=== PATIENT | female | born 1945 | race Caucasian/White ===

== ENCOUNTER 2016-11-05 07:18 | Inpatient (IN) | payer BC, MEDICARE ==
[~2016-11-05] VITALS: Ht 157.5 cm; Wt 64.9 kg
[2016-11-05] MEDS ORDERED: ATOR10TA69 PO (07:25)
[2016-11-05] MEDS ORDERED: NEBI5TAB3 PO (07:25)
[2016-11-05] MEDS ORDERED: HYDR12.529 PO (07:25)
[2016-11-05 09:32] LABS: BASOPHILS % 0.8 % (0.0-2.0); EOSINOPHILS % 2.4 % (0.0-5.0); HEMATOCRIT. 35.9 % (36.0-48.0); LYMPHOCYTES % 25.2 % (20.0-50.0); MEAN CORPUSCULAR HEMOGLOBIN 30.1 pg (28.0-32.0); MEAN CORPUSCULAR VOLUME 90.1 fL (81.0-99.0); MEAN PLATELET VOLUME 9.8 fl (7.4-10.4); NEUTROPHILS % 63.6 % (40.0-76.0); PLATELET 149 x1000/uL (130-400); RED BLOOD CELL COUNT 3.98 mill/uL (4.2-5.4); RED CELL DISTRIBUTION WIDTH 13.6 % (11.6-14.6)
[2016-11-05 09:38] LABS: PROTHROMBIN TIME 10.7 sec (9.4-11.6)
[2016-11-05 09:45] LABS: CARBON DIOXIDE 30 mEq/L (21-32); CHLORIDE 110 mEq/L (98-107); TROPONIN I < 0.02 ng/mL (0.00-0.04)
[2016-11-05] MEDS ORDERED: ONDANSETRON HCL 4MG/2ML VIAL IV PRN (12:15)
[2016-11-05] MEDS ORDERED: DOCUSATE SODIUM 100MG CAPSULE PO PRN (12:15)
[2016-11-05] MEDS ORDERED: ACETAMINOPHEN 325MG TABLET PO PRN (12:15)
[2016-11-05] MEDS: NEBIVOLOL HCL 5 MG TABLET PO SCH (13:45)
[2016-11-05 17:05] VITALS: BP 134/77
[2016-11-05] MEDS ORDERED: PNEUMOCOCCAL 23-VAL P-SAC VAC 0.5 ML IM ONE (18:30)
[2016-11-05 19:31] LABS: T4 FREE 1.11 ng/dL (0.76-1.46)
[2016-11-05 19:55] LABS: FOLIC ACID (FOLATE) SERUM 10.2 ng/mL (>5.38)
[2016-11-05 20:00] VITALS: BP 176/81
[2016-11-05] MEDS ORDERED: CLONIDINE 0.1MG TABLET PO PRN (20:15)
[2016-11-06] VITALS: BP 158/75
[2016-11-06 00:42] LABS: *AMPHETAMINES SCREEN URINE NEGATIVE (NEGATIVE); *BARBITURATES SCREEN URINE NEGATIVE (NEGATIVE); *BENZODIAZEPINES SCREEN URINE NEGATIVE (NEGATIVE); *COCAINE SCREEN URINE NEGATIVE (NEGATIVE); CANNABINOID URINE SCREEN NEGATIVE (NEGATIVE); METHADONE URINE SCREEN NEGATIVE (NEGATIVE); OPIATES URINE SCREEN NEGATIVE (NEGATIVE); PHENCYCLIDINE URINE SCREEN NEGATIVE (NEGATIVE)
[2016-11-06 04:00] VITALS: BP 135/64
[2016-11-06] MEDS: OMEPRAZOLE 20MG CAPSULE EXTENDED RELEASE PO SCH (06:17)
[2016-11-06 06:20] LABS: BASOPHILS % 0.7 % (0.0-2.0); EOSINOPHILS % 2.9 % (0.0-5.0); HEMATOCRIT. 37.6 % (36.0-48.0); HEMOGLOBIN. 12.7 g/dL (12.0-16.0); LYMPHOCYTES % 37.3 % (20.0-50.0); MEAN PLATELET VOLUME 10.8 fl (7.4-10.4); MONOCYTES % 9.7 % (2.0-8.0); NEUTROPHILS % 49.4 % (40.0-76.0); PLATELET 154 x1000/uL (130-400); RED BLOOD CELL COUNT 4.23 mill/uL (4.2-5.4); RED CELL DISTRIBUTION WIDTH 13.8 % (11.6-14.6)
[2016-11-06 07:10] LABS: CARBON DIOXIDE 29 mEq/L (21-32); CHLORIDE 107 mEq/L (98-107); HDL CHOLESTEROL 48 mg/dL (40-59); LDL CHOLESTEROL 65 mg/dL (5-100); TROPONIN I < 0.02 ng/mL (0.00-0.04)
[2016-11-06 08:00] VITALS: BP 164/84
[2016-11-06] MEDS: NEBIVOLOL HCL 5 MG TABLET PO SCH ×2 (10:08→20:47)
[2016-11-06 12:00] VITALS: BP 148/80
[2016-11-06 16:00] VITALS: BP 144/78
[2016-11-06 20:00] VITALS: BP 144/72
[2016-11-07] VITALS: BP 129/65
[2016-11-07 04:00] VITALS: BP 154/79
[2016-11-07] MEDS: OMEPRAZOLE 20MG CAPSULE EXTENDED RELEASE PO SCH (06:31)
[2016-11-07 07:02] LABS: BASOPHILS % 0.6 % (0.0-2.0); EOSINOPHILS % 2.3 % (0.0-5.0); HEMATOCRIT. 37.2 % (36.0-48.0); HEMOGLOBIN. 12.4 g/dL (12.0-16.0); LYMPHOCYTES % 36.1 % (20.0-50.0); MEAN CORPUSCULAR HEMOGLOBIN 30.1 pg (28.0-32.0); MEAN CORPUSCULAR VOLUME 90.3 fL (81.0-99.0); MEAN PLATELET VOLUME 11.3 fl (7.4-10.4); MONOCYTES % 8.8 % (2.0-8.0); NEUTROPHILS % 52.2 % (40.0-76.0); PLATELET 156 x1000/uL (130-400); RED BLOOD CELL COUNT 4.12 mill/uL (4.2-5.4); RED CELL DISTRIBUTION WIDTH 13.5 % (11.6-14.6)
[2016-11-07 07:56] LABS: CARBON DIOXIDE 27 mEq/L (21-32); CHLORIDE 108 mEq/L (98-107)
[2016-11-07 08:00] VITALS: BP 167/86
[2016-11-07] MEDS: NEBIVOLOL HCL 5 MG TABLET PO SCH (08:51)
[2016-11-07 12:00] VITALS: BP 144/78
[2016-11-07 14:00] VITALS: BP 126/74
[2016-11-07 14:30] VITALS: BP 124/72
== END 2016-11-07 14:50 | disposition home or self-care (01) | DRG 66 ==
LOC: ER 07:36 → EDBEDREQ 10:17 → SUPCPDRO 10:57 → ENRESERV 15:45 → 5WST 17:35
PROVIDERS: ADMIT Family Medicine Adult Medicine; ATTEND Family Medicine Adult Medicine
DX: I63.9 Cerebral infarction, unspecified (principal); G90.8 Other disorders of autonomic nervous system; R00.1 Bradycardia, unspecified; E11.9 Type 2 diabetes mellitus without complications; E78.00 Pure hypercholesterolemia, unspecified; I10 Essential (primary) hypertension; R26.89 Other abnormalities of gait and mobility; E78.5 Hyperlipidemia, unspecified; Z83.3 Family history of diabetes mellitus; Z79.899 Other long term (current) drug therapy
CPT/HCPCS: 36415; 70450; 70544; 70553; 71010; 80048; 80053; 80061; 80305; 82607; 82746; 83036; 83735; 83880; 84439; 84443; 84481; 84484; 85025; 85379; 85610; 90732; 93005; 93306; 93880; 93970; 97162; 99285; G0482